=== PATIENT | female | born 1950 | race Caucasian/White ===

== ENCOUNTER 2016-12-26 11:33 | Inpatient (IN) | payer MEDICARE ==
[~2016-12-26] VITALS: Ht 149.9 cm; Wt 45.7 kg
[~2016-12-26 11:33] MED LIST: CARAFATE1 G/10 ML PO; CHOLESTYRAMIN4 G/PK1 PO; CLARITIN 10 MG10 MG PO; DYAZIDE 37.5/251 CAP PO; HYDROCODONE-APA1 TAB PO; LOTREL 10/20 CA1 CAP PO; PRILOSEC20 MG PO; TOPROL XL100 MG PO
[2016-12-26 13:10] LABS: BASOPHILS 1.5 % (0-2); EOSINOPHILS 4.9 % (0-7); HEMATOCRIT 39.9 % (36.0-48.0); HEMOGLOBIN 12.5 g/dL (12-16); IMMATURE GRANULOCYTES 0.4 % (0-5); LYMPHOCYTES 7.2 % (15-50); MCH 32.8 pg (26.0-34.0); MCHC 31.3 g/dL (31.0-37.0); MCV 104.7 fL (80.0-100.0); MEAN PLATELET VOLUME 10.7 fL (7.4-10.4); MONOCYTES 5.9 % (2-11); NEUTROPHILS 80.1 % (40-80); PLATELET COUNT 734 10x3/uL (130-400); RBC 3.81 10x6/uL (4.00-5.40); RDW 15.1 % (11.5-14.5); WBC 18.1 10x3/uL (4.8-10.8)
[2016-12-26 13:25] LABS: ALBUMIN 3.7 g/dL (3.4-5.0); ALKALINE PHOSPHATASE 106 U/L (46-116); ALT (SGPT) 60 U/L (10-68); BILIRUBIN - TOTAL 0.58 mg/dL (0.2-1.3); CALC OSMOLALITY 297 mosm/kg (275-300); CALCIUM 8.7 mg/dL (8.5-10.1); CARBON DIOXIDE 37.4 mmol/L (21.0-32.0); CHLORIDE - SERUM 105 mmol/L (98-107); CREATININE - SERUM 1.6 mg/dL (0.6-1.3); GLUCOSE 98 mg/dL (74-106); POTASSIUM - SERUM 3.4 mmol/L (3.5-5.1); PROTEIN - SERUM 6.7 g/dL (6.4-8.2); SODIUM 147 mmol/L (136-145); UREA NITROGEN 29 mg/dL (7-18); eGFR NON AFRICAN AMERICAN 34 mL/min (90-120)
[2016-12-26 15:32] LABS: AMYLASE - SERUM 55 U/L (25-115); LIPASE 235 U/L (73-393); PRO BNP 304 pg/mL (0-125)
[2016-12-26 15:33] LABS: TROPONIN-I < 0.017 ng/mL (0.000-0.060)
[2016-12-26 17:12] LABS: APPEARANCE CLEAR (CLEAR); BILIRUBIN NEGATIVE (NEGATIVE); COLOR YELLOW (YELLOW); GLUCOSE NEGATIVE (NEGATIVE); KETONE NEGATIVE (NEGATIVE); LEUKOCYTE ESTERASE TRACE (NEGATIVE); NITRITE NEGATIVE (NEGATIVE); PROTEIN NEGATIVE (NEGATIVE); SPECIFIC GRAVITY 1.005 (1.005-1.020); UROBILINOGEN NORMAL (NORMAL)
[2016-12-26 17:13] LABS: EPITHELIAL CELLS 0-5 /hpf (0-5); RED CELLS - URINE 0-5 /hpf (0-5); WHITE CELLS - URINE 0-5 /hpf (0-5)
[2016-12-26 17:14] LABS: BACTERIA FEW /hpf (NONE SEEN); MUCUS <1+ /lpf (NONE SEEN)
[2016-12-26 20:00] VITALS: BP 110/69
[2016-12-26 23:33] VITALS: BP 97/56
[2016-12-27 01:33] VITALS: BP 114/56; Ht 149.9 cm; Wt 45.7 kg
[2016-12-27 04:00] VITALS: BP 92/51
--- NOTE | 2016-12-27 07:00 | NUR ---
REPORT RECIEVED ASSUMED CARE. PATIENT IN BED WITH IV INTACT. NO COMPLAINTS. CALL LIGHT WITHIN REACH.
[2016-12-27 09:45] VITALS: BP 95/63
[2016-12-27 12:45] VITALS: BP 96/53
--- NOTE | 2016-12-27 18:50 | NUR ---
PATIENT DC HELD DUE TO LOW O2 SATS ON RA. RT CONSULTED. PATIENT DOES NOT WEAR O2 AT HOME. NOTIFIED FAMILY. VERBALIZED UNDERSTANDING. IV INTACT. CALL LIGHT WITHIN REACH.
[2016-12-27 20:00] VITALS: BP 133/70
--- NOTE | 2016-12-27 20:01 | NUR ---
Received patient in room with sister at bedside. Patient is resting quietly. Auto Brake Technician in giving treatment at this time. PIV in right AC infusing NS @125ml/hr. No signs of distress at this time. No voiced complaints.
--- NOTE | 2016-12-27 20:50 | NUR ---
Compliant with HS medications, unable to find her eye gtts at this time, will continue to look for same. Daughter has been at bedside on and off. Patient denies any pain or discomfort. Oxygen remains on @4L/min, sat = 93%. Bed alarm on for safety. IV infusing.
--- NOTE | 2016-12-27 22:00 | NUR ---
Given Xalatan eye gtts, found in refrigerator and returned to same. No voiced complaints at this time.
--- NOTE | 2016-12-27 22:30 | NUR ---
Entered room, daughter present extremely upset. Claims she left the hospital and that her mother has been left with her call light on for long period of time, claims the call light was on before she left and was still on when she returned. Attempted to inform daughter that both nurse and Tech had been in patient's room several times but she flat out stated "No" and wanted to speak to the Charge Nurse and to the Line Patrolman. I proceeded to open up patient's chart in the computer and showed daughter when patient's medications had been documented. Informed her the Tech had been in to take patient's VS and do HS care. Daughter was very angry, loud and accusatory, stating emphatically that patient would not "have soaked the bed" if her call light had been answered. Patient had infact dribbled small amount of urine, bed was not soaked, bedlinens were changed, incontinent care was done. Patient admitted she had been asked if she needed anything but had not told staff she needed to go to the bathroom. Daughter then became apologetic after ranting for the past 10 minutes. Daughter did speak to Charge Nurse and to Line Patrolman.
[2016-12-28] VITALS: BP 134/69
--- NOTE | 2016-12-28 02:45 | NUR ---
Respirations easy and regular, found patient sitting up in bed looking quite confused. Daughter asleep in chair at bedside. Reoriented patient that she was in the hospital, and to the time of day. Encouraged to try to sleep, tucked into bed. Checked pulse ox = 92% with oxygen on @4L/min. Resting quietly. IV infusing.
[2016-12-28 04:00] VITALS: BP 140/68
--- NOTE | 2016-12-28 05:27 | NUR ---
Assisted up to bathroom, voided moderate amount clear yellow urine, assisted back into bed, takes short steps, shuffling gait.
--- NOTE | 2016-12-28 08:05 | NUR ---
PT ASSESSMENT COMPLETE AWAKE AND ALERT ORIENTED X 3 PT HAS VERY FLAT AFFECT NOT VERBAL UNLESS ENGAGED SEVERAL TIMES. NOTED TO HAVE EXPIRATORY WHEEZING AND DIMINISHED SOUNDS NOTED.
[2016-12-28 08:33] VITALS: BP 145/75
--- NOTE | 2016-12-28 10:16 | NUR ---
Patient Name: KUSH MARTINEZ Admission Status: ER Accout number: [id number] Admission Date: 12-26-2016 : 1950 Admission Diagnosis: Attending: TAIWO Current LOS: 2 Anticipated DC Date: 12-31-2016 Planned Disposition: Home Primary Insurance: MEDICARE A & B Discharge Planning Comments: CM MET WITH PATIENT AND FAMILY (SISTER-RADHA BARRETO) REGARDING D/C NEEDS AND PLANS. PATIENTS SISTER STATED SHE WILL DRIVE HER HOME AT DISCHARGE. THERE ARE 2 STEPS W/O RAILS TO ENTER HOME AND 1 SMALL STEP W/O RAIL IN HOME. PATIENT IS INDEPENDENT PER SISTER AND HAS A CANE. PATIENTS PCP IS DR. TADEO AND PHARMACY IS [facility] [address]. PATIENT AND FAMILY HAS REFUSED HOME HEALTH AT THIS TIME BUT WOULD RECONSIDER IF DOCTOR THINKS IT IS NEEDED. CM WILL CONTINUE TO FOLLOW PATIENT WITH D/C NEEDS AND PLANS. PCP DR[facility] [address] [phone] RADHA BARRETO (SISTER) [phone] Power Cleaner Operator: Farida Ramos Is the patient Alert and Oriented? Yes 0 * How many steps to enter\exit or inside your home? 2 0 * PCP DR. TADEO 0 * [facility] [address] 0 * Preadmission Environment Home with Family 0 * ADLs Independent 0 * Equipment Cane 0 * List name and contact numbers for known caregivers / representatives who currently or will assist patient after discharge: RADHA BARRETO [phone] * Community resources currently utilized None 0 * Additional services required to return to the preadmission environment? Yes 0 * Can the patient safely return to the preadmission environment? Yes 0 * Has this patient been hospitalized within the prior 30 days at any hospital? No 0 Grand Total: 0
--- NOTE | 2016-12-28 11:11 | NUR ---
PT AOX4 RESP EVEN AND NONLABORED PT HAS FLAT AFFECT WITH RIGHT SIDED WEAKNESS IV TO RIGHT FOREARM PATENT AND INTACT PT DENIES NEEDS AT THIS TIME SRX2 BED AT LOWEST SETTINGS PT HERE FOR IV FLUIDS AND ANTIBIOTICS CALL LIGHT WITHIN REACH WILL CONTINUE TO MONITOR
[2016-12-28 13:11] VITALS: BP 119/68
--- NOTE | 2016-12-28 14:27 | NUR ---
NO ACUTE DISTRESS NOTED PT WITH LOOSE STOOL X 2 EPISODES DENIES PAIN OR GASTRIC DISCOMFORT. ALL ADLS PER STAFF ASSIST.
--- NOTE | 2016-12-28 15:58 | NUR ---
WITHOUT DISTRESS AT PRESENT.FAMILY AT BEDSIDE
[2016-12-28 16:14] VITALS: BP 109/54
--- NOTE | 2016-12-28 16:17 | NUR ---
NO ACUTE DISTRESS NOTED TOLERATES IV THERAPY WELL.
[2016-12-28 20:26] VITALS: BP 133/73
[2016-12-29] VITALS (7 sets, daily range): BP systolic 118–136; BP diastolic 64–72
--- NOTE | 2016-12-29 03:17 | NUR ---
REC'D PATIENT LYING IN BED. ALERT AND ORIENTED X4. SHE WAS WET AND NEEDED TO GO TO THE BATHROOM. CHANGED OUT HER BED PAD AND HELPED HER TO THE BEDSIDE COMMODE. DENIED PAIN AT THIS TIME. DENIED FURTHER NEEDS AT THIS TIME. INSTRUCTED TO CALL IF NEEDED ANYTHING. BED LOW, LOCKED CALL LIGHT IN REACH.
--- NOTE | 2016-12-29 03:18 | NUR ---
PATIENT COMPLAINED OF CHEST PAIN. HR WAS 124 ADMINISTERED 2100 LOPRESSOR PRESCRIBED AND NORCO SHE ASKS FOR. CHECKED ON HER 30 MIN LATER AND STATED THE PAIN WENT FROM 7/10 TO 4/10. WILL CONT TO MONITOR THROUGHOUT THE NIGHT. BED LOW, LOCKED, CALL LIGHT IN REACH.
--- NOTE | 2016-12-29 04:00 | NUR ---
PATIENT SLEEPING WITH NO DISTRESS NOTED. AGREE WITH NEUROLOGY EPILEPSY PHYSICIAN ASSESSMENT.
--- NOTE | 2016-12-29 05:50 | NUR ---
PATIENT IS RESTING IN BED. SISTER IS AT BESIDE. NO DISTRESS NOTED. DENIED PAIN AT THIS TIME. DENIED FUTHER NEEDS AT THIS TIME. INTRUCTED TO CALL IF NEEDED ANYTHING. BED LOW, LOCKED CALL LIGHT IN REACH.
[2016-12-29 05:55] LABS: BASOPHILS 0.8 % (0-2); EOSINOPHILS 3.5 % (0-7); HEMATOCRIT 34.2 % (36.0-48.0); HEMOGLOBIN 10.9 g/dL (12-16); IMMATURE GRANULOCYTES 0.8 % (0-5); LYMPHOCYTES 6.8 % (15-50); MCH 32.6 pg (26.0-34.0); MCHC 31.9 g/dL (31.0-37.0); MCV 102.4 fL (80.0-100.0); MEAN PLATELET VOLUME 10.9 fL (7.4-10.4); MONOCYTES 6.6 % (2-11); NEUTROPHILS 81.5 % (40-80); PLATELET COUNT 661 10x3/uL (130-400); RBC 3.34 10x6/uL (4.00-5.40); WBC 11.9 10x3/uL (4.8-10.8)
[2016-12-29 06:25] LABS: ANION GAP 12.1 mmol/L (8-16); CALCIUM 7.7 mg/dL (8.5-10.1); CARBON DIOXIDE 26.6 mmol/L (21.0-32.0); CREATININE - SERUM 1.3 mg/dL (0.6-1.3)
[2016-12-29 06:55] LABS: POTASSIUM - SERUM 2.7 mmol/L (3.5-5.1)
--- NOTE | 2016-12-29 08:17 | NUR ---
PT ASSESSMENT AWAKE AND ALERT ORINETED X 3 LUNGS WITH DIMINSHED BASES. BSA X 4 QUADS. HAS LEFT LEG SHORTER THAN THE RIGHT FAMILY AT BEDSIDE. WILL MONITOR
--- NOTE | 2016-12-29 08:18 | NUR ---
LYING IN BED,WITHOUT DISTRESS.CALL LIGHT IN REACH
--- NOTE | 2016-12-29 12:54 | NUR ---
NUTRITION MONITORING & EVAL CHART REVIEWED, PT VISIT. TOLERATING REG DIET. 75% INTAKE RECENT MEALS. CONTINUES TO BE ASSESSED AT LOW NUTRITIONAL RISK. RD FOLLOWING
--- NOTE | 2016-12-29 15:46 | NUR ---
PT SITTING UP IN CHAIR TOLERATING WELL BREATHING EXCERCISING ENCOURAGED.
--- NOTE | 2016-12-29 18:29 | NUR ---
BACK TO BED FAMILY AT SIDE ATE 80 % OF SUPPER MEAL FED PER FAMILY
--- NOTE | 2016-12-29 19:25 | NUR ---
ASSESSMENT COMPLETED, NO ACUTE DISTRESS NOTED, DENIES PAIN OR NEEDS AT THIS TIME, FALL PRECAUTIONS IN PLACE, CL IN REACH, WILL MONITOR
--- NOTE | 2016-12-29 21:23 | NUR ---
MEDS GIVEN PER MAR, TERRI WELL, DENIES NEEDS AT THIS TIME, CL IN REACH
--- NOTE | 2016-12-29 22:24 | NUR ---
PRN NORCO GIVEN PER MAR FOR C/O LOMAX, TERRI WELL, SISTER IN ROOM, CL IN REACH
--- NOTE | 2016-12-29 23:20 | NUR ---
SITTING UP IN BED, NO DISTRESS NOTED, SISTER AT BEDSIDE, SR'S UP, CL IN REACH
--- NOTE | 2016-12-30 01:49 | NUR ---
FLUIDS HUNG PER MAR, TERRI WELL, RESTING WITH EYES CLOSED, RESP WITH EASE, FALL PRECAUTIONS IN PLACE, SISTER IN ROOM, CL IN REACH
[2016-12-30 04:00] VITALS: BP 123/73
[2016-12-30 05:54] LABS: BASOPHILS 1.5 % (0-2); HEMATOCRIT 36.2 % (36.0-48.0); HEMOGLOBIN 11.4 g/dL (12-16); LYMPHOCYTES 6.4 % (15-50); MCH 32.5 pg (26.0-34.0); MCHC 31.5 g/dL (31.0-37.0); MCV 103.1 fL (80.0-100.0); MEAN PLATELET VOLUME 11.1 fL (7.4-10.4); MONOCYTES 7.5 % (2-11); NEUTROPHILS 79.6 % (40-80); PLATELET COUNT 746 10x3/uL (130-400); RBC 3.51 10x6/uL (4.00-5.40); RDW 15.3 % (11.5-14.5)
[2016-12-30 05:57] LABS: WBC 15.5 10x3/uL (4.8-10.8)
[2016-12-30 06:12] LABS: ALBUMIN 2.4 g/dL (3.4-5.0); ANION GAP 10.2 mmol/L (8-16); BILIRUBIN - TOTAL 0.28 mg/dL (0.2-1.3); CALCIUM 8.1 mg/dL (8.5-10.1); CARBON DIOXIDE 27.5 mmol/L (21.0-32.0); CREATININE - SERUM 1.1 mg/dL (0.6-1.3); POTASSIUM - SERUM 3.7 mmol/L (3.5-5.1); PROTEIN - SERUM 5.4 g/dL (6.4-8.2)
[2016-12-30 08:47] VITALS: BP 117/60
--- NOTE | 2016-12-30 10:20 | NUR ---
PATIENT VOMITED, CALLED 'S OFFICE, SPOKE WITH DR.LEFLER YESI'S NURSE. SHE STATED SHE WILL SPEAK WITH THE DOCTOR AND CALL ME BACK REGARDING MEDICATION FOR NAUSEA.
[2016-12-30 11:37] VITALS: BP 127/71
[2016-12-30 15:27] VITALS: BP 109/67
--- NOTE | 2016-12-30 19:50 | NUR ---
LYING IN BED WATCHING TV, ASSESSMENT COMPLETED, NO ACUTE DISTRESS NOTED, DENIES NEEDS AT THIS TIME, FAMILY AT BEDSIDE, ALARM ON, CL IN REACH, WILL MONITOR
[2016-12-30 20:00] VITALS: BP 114/69
--- NOTE | 2016-12-30 21:13 | NUR ---
MEDS GIVEN PER MAR. TERRI WELL, DENIES NEEDS, SAFETY MEASURES IN PLACE, CL IN REACH
--- NOTE | 2016-12-30 23:15 | NUR ---
VISITING WITH FAMILY, DENIES NEEDS AT THIS TIME, BOX ALARM ON, CL IN REACH
[2016-12-31] VITALS: BP 123/42
--- NOTE | 2016-12-31 05:32 | NUR ---
PROTONIX GIVEN PER NOV, ASSISTED TO RESTROOM, LINEN AND GOWN CHANGED FROM INCONT EPISODE, TERRI WELL, DENIES NEEDS, SR'S UP, BOX ALARM ON, SISTER AT BEDSIDE, CL IN REACH
--- NOTE | 2016-12-31 06:04 | NUR ---
PRN NORCO GIVEN FOR C/O STERNAL PAIN, NO DISTRESS NOTED, CL IN REACH
[2016-12-31 06:19] LABS: BASOPHILS 1.1 % (0-2); EOSINOPHILS 6.1 % (0-7); HEMATOCRIT 38.7 % (36.0-48.0); HEMOGLOBIN 12.2 g/dL (12-16); IMMATURE GRANULOCYTES 1.3 % (0-5); LYMPHOCYTES 5.7 % (15-50); MCH 32.4 pg (26.0-34.0); MCHC 31.5 g/dL (31.0-37.0); MCV 102.9 fL (80.0-100.0); MEAN PLATELET VOLUME 10.8 fL (7.4-10.4); MONOCYTES 6.6 % (2-11); NEUTROPHILS 79.2 % (40-80); PLATELET COUNT 779 10x3/uL (130-400); RBC 3.76 10x6/uL (4.00-5.40); RDW 15.2 % (11.5-14.5); WBC 17.5 10x3/uL (4.8-10.8)
[2016-12-31 06:49] LABS: ALBUMIN 2.7 g/dL (3.4-5.0); ANION GAP 11.1 mmol/L (8-16); BILIRUBIN - TOTAL 0.31 mg/dL (0.2-1.3); CALCIUM 8.4 mg/dL (8.5-10.1); CARBON DIOXIDE 29.5 mmol/L (21.0-32.0); CREATININE - SERUM 1.3 mg/dL (0.6-1.3); POTASSIUM - SERUM 3.6 mmol/L (3.5-5.1); PROTEIN - SERUM 5.7 g/dL (6.4-8.2)
--- NOTE | 2016-12-31 07:10 | NUR ---
REPORT RECEIVED FROM RECOVERY COLLECTOR NURSE. CALL LIGHT IN REACH.
[2016-12-31 08:21] VITALS: BP 124/64
--- NOTE | 2016-12-31 09:22 | NUR ---
ASSESSMENT COMPLETED. NORCO PO WITH AM MEDS ADMINISTERED. BED ALARM ON. CALL LIGHT IN REACH. WILL CONTINUE WITH PLAN OF CARE.
--- NOTE | 2016-12-31 09:22 | NUR ---
REPORT RECEIVED FROM PAYMENT COLLECTOR NURSE. CALL LIGHT IN REACH.
--- NOTE | 2016-12-31 09:52 | NUR ---
AWAKE AND ALERT LYING IN BED AT THIS TIME. RESPIRATIONS EVEN AND NON LABORED. CALL LIGHT IN REACH. SRX2 WITH BED IN LOWEST POSITION AND WHEELS LOCKED. CALL LIGHT IN REACH, WILL CONTINUE WITH PLAN OF CARE.
--- NOTE | 2016-12-31 11:40 | NUR ---
NO NEEDS VOICED AT THIS TIME. CALL LIGHT IN REACH.
--- NOTE | 2016-12-31 12:03 | NUR ---
NO NEEDS VOICED AT THIS TIME. CALL LIGHT IN REACH.
[2016-12-31 12:26] VITALS: BP 135/70
--- NOTE | 2016-12-31 13:43 | NUR ---
NEW BAG OF IV FLUIDS INITIATED. NORCO PO PER ABDOMINAL PAIN.
--- NOTE | 2016-12-31 15:20 | NUR ---
RESTING WITH EYES CLOSED. RESP EVEN AND UNLABORED. CALL LIGHT IN REACH.
[2016-12-31 16:22] VITALS: BP 134/74
--- NOTE | 2016-12-31 16:24 | NUR ---
C/O CHEST PAIN. BP 135/70, RESP 20, HR 89, AND O2 SAT 93% ON 6L PER NC. WILL CALL DR. TADEO.
--- NOTE | 2016-12-31 18:28 | NUR ---
GETTING CXR AT THIS TIME. SISTER IN ROOM. SPOKE WITH RT ABOUT O2 LEVEL. CALL LIGHT IN REACH. LONG MAT ALARM ON. WILL CONTINUE WITH PLAN OF CARE.
--- NOTE | 2016-12-31 19:00 | NUR ---
BEDSIDE REPORT RECEIVED AND CARE OF PT ASSUMED. PT LYING IN SEMI MOORE'S POSITION WATCHING TV. SISTER IS AT BEDSIDE. O2 IN USE VIA NC AT 6L. WILL MONITOR CLOSLEY FOR NEEDS.
--- NOTE | 2016-12-31 19:40 | NUR ---
DR BAIRES ROUNDED ON PT AND PLACED NEW ORDERS FOR LASIX AND SOLUMEDROL...BOTH GIVEN IVP PER ORDER AND PURPOSE / POSSIBLE SIDE EFFECTS DISCUSSED WITHPT. WILL CONTINUE TO MONITOR CLOSEY.
[2016-12-31 20:00] VITALS: BP 125/72
--- NOTE | 2016-12-31 21:40 | NUR ---
HS MEDICATIONS GIVEN. ASSISTED PT UP TO USE BSC. WILL CONTINUE TO MONITOR FOR NEEDS. CALL LIGHT WITHIN REACH.
[2017-01-01] VITALS: BP 133/69
--- NOTE | 2017-01-01 02:10 | NUR ---
GAVE NORCO 10 PO PER PT REQUEST FOR PAIN IN HIP. ASSISTED PT UP TO USE BSC. POSITIONED BACK IN BED FOR COMFORT. NO OTHER NEEDS VOICED. WILL CONTINUE TO MONITOR FOR NEEDS. SISTER IS AT BEDSIDE.
[2017-01-01 04:00] VITALS: BP 131/69
[2017-01-01 05:54] LABS: BASOPHILS 0.6 % (0-2); EOSINOPHILS 2.5 % (0-7); HEMATOCRIT 35.5 % (36.0-48.0); HEMOGLOBIN 11.6 g/dL (12-16); IMMATURE GRANULOCYTES 1.4 % (0-5); LYMPHOCYTES 5.1 % (15-50); MCHC 32.7 g/dL (31.0-37.0); MEAN PLATELET VOLUME 10.8 fL (7.4-10.4); MONOCYTES 3.3 % (2-11); NEUTROPHILS 87.1 % (40-80); PLATELET COUNT 774 10x3/uL (130-400); RBC 3.52 10x6/uL (4.00-5.40); RDW 14.8 % (11.5-14.5); WBC 15.4 10x3/uL (4.8-10.8)
[2017-01-01 05:57] LABS: MCV 100.9 fL (80.0-100.0)
[2017-01-01 06:26] LABS: ANION GAP 5.5 mmol/L (8-16); CALCIUM 7.9 mg/dL (8.5-10.1); CARBON DIOXIDE 35.5 mmol/L (21.0-32.0); CREATININE - SERUM 1.3 mg/dL (0.6-1.3); MAGNESIUM - SERUM 1.1 mg/dL (1.8-2.4); PHOSPHOROUS 4.5 mg/dL (2.5-4.9)
--- NOTE | 2017-01-01 07:06 | NUR ---
POTASSIUM LEVEL 3.0 AND MAGNESIUM 1.1 THIS AM. COVERING PER ELECTROLYTE PTOTOCOL. GAVE 40 MEQ PO POTASSIUM AND 400 MG PO MAGNESIUM. WILL PASS ALONG IN REPORT.
[2017-01-01 08:00] VITALS: BP 126/78
--- NOTE | 2017-01-01 08:43 | NUR ---
SITTING UP IN BED EATING BREAKFAST, DENIES NEEDS, CALL LIGHT IN REACH, BED LOWEST POSITION, WILL CONTINUE TO MONITOR
[2017-01-01 12:29] VITALS: BP 114/59
--- NOTE | 2017-01-01 14:14 | NUR ---
AMBUKATED IN HALLS,WITHOUT DISTRESS.BACK TO ROOM WITH PT.CALL LIGHT IN REACH
[2017-01-01 15:47] VITALS: BP 101/54
[2017-01-01 19:00] VITALS: BP 135/65
--- NOTE | 2017-01-01 21:00 | NUR ---
ASSESSMENT COMPLETED PER FLOW SHEET. NO DISTRESS NOTED. CALL LIGHT IN REACH.
[2017-01-02] VITALS: BP 134/76
[2017-01-02 04:00] VITALS: BP 125/60
[2017-01-02 05:33] LABS: BASOPHILS 0.5 % (0-2); EOSINOPHILS 1.2 % (0-7); HEMATOCRIT 36.5 % (36.0-48.0); HEMOGLOBIN 11.6 g/dL (12-16); IMMATURE GRANULOCYTES 1.6 % (0-5); LYMPHOCYTES 5.9 % (15-50); MCH 32.2 pg (26.0-34.0); MCHC 31.8 g/dL (31.0-37.0); MCV 101.4 fL (80.0-100.0); MEAN PLATELET VOLUME 10.3 fL (7.4-10.4); MONOCYTES 6.8 % (2-11); PLATELET COUNT 817 10x3/uL (130-400); RDW 15.1 % (11.5-14.5); WBC 18.2 10x3/uL (4.8-10.8)
[2017-01-02 05:59] LABS: ANION GAP 7.1 mmol/L (8-16); CREATININE - SERUM 1.4 mg/dL (0.6-1.3); MAGNESIUM - SERUM 1.3 mg/dL (1.8-2.4); PHOSPHOROUS 3.4 mg/dL (2.5-4.9)
[2017-01-02 06:00] LABS: POTASSIUM - SERUM 3.1 mmol/L (3.5-5.1)
--- NOTE | 2017-01-02 07:30 | NUR ---
SITTING UP IN BED WITH BREATHING TREATMENT ON, DENIES NEEDS, NO DISTRESS NOTED, BED LOWEST POSITION, CALL LIGHT IN REACH, ASSESSMENT COMPLETE, WILL CONTINUE TO MONITOR
[2017-01-02 08:16] LABS: IMMUNOGLOBULIN E <1 IU/mL (0-100)
[2017-01-02 09:00] VITALS: BP 157/85
[2017-01-02 16:17] VITALS: BP 96/50
--- NOTE | 2017-01-02 16:19 | NUR ---
PT WITHOUT DISTRESS.HAS AMBULATED IN HALLS WITH PT.CALL LIGHT IN REACH
--- NOTE | 2017-01-02 17:58 | NUR ---
SLEEEPING, NO DISTRESS NOTED
[2017-01-02 20:00] VITALS: BP 124/54
--- NOTE | 2017-01-02 22:05 | NUR ---
ASSISTED THE PATIENT TO THE BEDSIDE COMMODE AND BACK TO BED. PATIENT DENIES OTHER NEEDS AT THIS TIME. BED IN LOWEST POSITION AND CALL LIGHT WITHIN REACH. ENCOURAGED THE PATIENT TO CALL IF SHE HAS FURTHER NEEDS.
[2017-01-03] VITALS: BP 133/71
[2017-01-03 04:00] VITALS: BP 136/88
[2017-01-03 06:24] LABS: HEMATOCRIT 37.5 % (36.0-48.0); HEMOGLOBIN 11.8 g/dL (12-16); MCH 32.1 pg (26.0-34.0); MCHC 31.5 g/dL (31.0-37.0); MCV 101.9 fL (80.0-100.0); MEAN PLATELET VOLUME 10.5 fL (7.4-10.4); PLATELET COUNT 932 10x3/uL (130-400); RBC 3.68 10x6/uL (4.00-5.40); RDW 14.7 % (11.5-14.5); WBC 21.7 10x3/uL (4.8-10.8)
[2017-01-03 06:49] LABS: LYMPHOCYTES 6 % (15-50); MONOCYTES 2 % (2-11); NEUTROPHILS 89 % (40-80); PLATELET ESTIMATE INCREASED
[2017-01-03 07:05] LABS: ALBUMIN 2.5 g/dL (3.4-5.0); ANION GAP 12.4 mmol/L (8-16); BILIRUBIN - TOTAL 0.2 mg/dL (0.2-1.3); CALCIUM 8.4 mg/dL (8.5-10.1); CREATININE - SERUM 1.4 mg/dL (0.6-1.3); POTASSIUM - SERUM 3.4 mmol/L (3.5-5.1); PROTEIN - SERUM 5.6 g/dL (6.4-8.2)
--- NOTE | 2017-01-03 07:30 | NUR ---
RECIEVED PT DURING WALKING ROUNDS. PT RESTING IN BED WITH NO COMPLAINTS OF PAIN OR DISCOMFORT AT THIS TIME. ASSESSMENT DONE PER FLOWSHEET. BED IN LOW POSITION AND CALL LIGHT WITHIN REACH. WILL CONTINUE TO MONITOR.
[2017-01-03 09:17] VITALS: BP 146/78
[2017-01-03 11:53] VITALS: BP 144/75
[2017-01-03 15:33] VITALS: BP 98/54
--- NOTE | 2017-01-03 16:15 | NUR ---
AWAKE AND ALERT. RESPIRATIONS EVEN AND NON LABORED. OXYGEN ON 2L VIA NC. SRX2 WITH BED IN LOWEST POSITION AND WHEELS LOCKED. CALL LIGHT IN REACH, WILL CONTINUE WITH PLAN OF CARE.
[2017-01-03 20:00] VITALS: BP 133/73
--- NOTE | 2017-01-03 20:00 | NUR ---
ASSESSMENT PERFLOWSHEET. ALERT/ORIENTED X3 O2 ON 2L/M PER NC. NO DISTRESS HOB UP 45 DEGREES. BILATERAL CRACKLES NOTED. IN PATENT LT HAND SALINE LOCK.
--- NOTE | 2017-01-03 21:00 | NUR ---
MEDS GIVEN PER MAR FAMILY MEMBERS IN ROOM.
[2017-01-04] VITALS: BP 146/80
--- NOTE | 2017-01-04 | NUR ---
EYES CLOSED RESPIRATIONS WITH EASE AND UNLABORED.
[2017-01-04 04:00] VITALS: BP 140/75
[2017-01-04 05:54] LABS: BASOPHILS 0.2 % (0-2); EOSINOPHILS 0.5 % (0-7); HEMATOCRIT 38.5 % (36.0-48.0); HEMOGLOBIN 12.1 g/dL (12-16); IMMATURE GRANULOCYTES 3.2 % (0-5); LYMPHOCYTES 5.4 % (15-50); MCH 32.3 pg (26.0-34.0); MCHC 31.4 g/dL (31.0-37.0); MCV 102.7 fL (80.0-100.0); MEAN PLATELET VOLUME 10.5 fL (7.4-10.4); MONOCYTES 6.1 % (2-11); NEUTROPHILS 84.6 % (40-80); PLATELET COUNT 926 10x3/uL (130-400); RBC 3.75 10x6/uL (4.00-5.40); RDW 14.9 % (11.5-14.5); WBC 20.3 10x3/uL (4.8-10.8)
[2017-01-04 06:00] LABS: ANION GAP 7.5 mmol/L (8-16); CALCIUM 8.3 mg/dL (8.5-10.1); CARBON DIOXIDE 34.9 mmol/L (21.0-32.0); CREATININE - SERUM 1.3 mg/dL (0.6-1.3); POTASSIUM - SERUM 3.4 mmol/L (3.5-5.1)
--- NOTE | 2017-01-04 07:50 | NUR ---
AWAKE AND ALERT AT THIS TIME. SISTER AT BEDSIDE. PROVIDED PT WITH FRESH ICE WATER. CALL LIGHT IN REACH, WILL CONTINUE WITH PLAN OF CARE.
[2017-01-04 07:58] VITALS: BP 138/73
--- NOTE | 2017-01-04 08:23 | NUR ---
SCHEDULED MEDICATIONS ADMINISTERED AT THIS TIME WITHOUT DIFFICULTY. ASSESSMENT PERFORMED PER FLOWSHEET. SISTER AT BEDSIDE. CALL LIGHT IN REACH, SRX2 WITH BED IN LOWEST POSITION AND WHEELS LOCKED. WILL CONTINUE WITH PLAN OF CARE.
--- NOTE | 2017-01-04 09:10 | NUR ---
ASSISTED PT UP TO THE BATHROOM AT THIS TIME. VOIDED WITHOUT DIFFICULTY AND HAD A BOWEL MOVEMENT WITHOUT DIFICULTY. DENIES NEEDS AT THIS TIME. WILL CONTINUE WITH PLAN OF CARE.
--- NOTE | 2017-01-04 10:25 | EC ---
PATIENT:KUSH MARTINEZ DATE OF SERVICE: 12/26/16 SEX: F MEDICAL RECORD: [id number] DATE OF : [birth year] LOCATION:D.[id number] AGE OF PATIENT: 66 ADMISSION DATE: 12/26/16 REFERRING PHYSICIAN: INTERPRETING PHYSICIAN: ZAYNAB RANDOLPH MD ECHOCARDIOGRAM REPORT ECHO CHARGES 4 ECHO COMPLETE CLINICAL DIAGNOSIS: CHF HX HTN ECHOCARDIOGRAPHIC MEASUREMENTS (adult normal given) AC root (d.<3.7cm) 3.2 LV Septum d (<1.2 cm> 1.5 Valve Excursion 1.6 LV Septum (systole) 1.8 Left Atria (s.<4.0cm> 3.5 LVPW d(<1.2cm) 1.4 RV (d.<2.3cm) 2.8 LVPW (sytole) 1.5 LV diastole(<5.6CM) 3.8 MV E-F(>70mm/sec) LV systole 2.4 LVOT Diameter 1.6 MV exc.(>10mm) 1.7 Est.ejection fraction (50-75%) Pericardial Effusion N DOPPLER: LVIT A 77.0 E 112 LA RVSP 26 LVOT 139 AOP1/2T Asc. Ao 197 RVOT 104 RA PA 15 AV Gradient Peak 15.45 AV Mean 6.31 AV Area 1.7 MV Gradient Peak 7.00 MV Mean 3.03 MV Area COMMENTS: Inoculator: Eneida GONZÁLES Shoe Planner:Eneida Yeboah TAPE# PACS DATE OF SERVICE: 01/01/2017 Echocardiogram FINDINGS: 1. Left ventricular chamber size is within normal limits. Left ventricular systolic function is normal. Overall ejection fraction estimated at 65%. 2. Left atrium, right atrium, and right ventricular chamber sizes are within normal limits. 3. Valvular structures have normal structure and motion. ECHOCARDIOGRAM REPORT [id number] KUSH MARTINEZ 4. Doppler interrogation reveals mild aortic insufficiency, mild mitral regurgitation, mild tricuspid regurgitation. No other valvular insufficiency or stenosis. Pulmonary systolic pressure is normal estimated at 26 mmHg. 5. No evidence of pericardial effusion or left ventricular thrombus. TRANSINT:[id number] Voice Confirmation ID: [id number] DOCUMENT ID: [id number] ZAYNAB RANDOLPH MD at 1025 CC: [id number] DICTATION DATE: 01/01/17 1531 TRAFFIC WORKFORCE REPRESENTATIVE: 01/01/17 1652 ADM IN [facility] [address] [id number]
[2017-01-04 11:54] VITALS: BP 138/73
--- NOTE | 2017-01-04 15:31 | NUR ---
SCHEDULED MEDICATIONS ADMINISTERED BY PEYTON MA AT THIS TIME. PT ALERT AND ORIENTED WITH RESPIRATIONS EVEN AND NON LABORED. CALL LIGHT IN REACH, WILL CONTINUE WITH PLAN OF CARE.
[2017-01-04 15:50] VITALS: BP 112/59
--- NOTE | 2017-01-04 19:41 | NUR ---
ASSISTED PATIENT TO THE RESTROOM AND BACK TO BED. PATIENT DENIES OTHER NEEDS AT THIS TIME. BED IN LOWEST POSITION AND CALL LIGHT WITHIN REACH.
[2017-01-04 20:00] VITALS: BP 120/64
[2017-01-05 04:00] VITALS: BP 137/81
[2017-01-05 08:25] VITALS: BP 150/72
[2017-01-05 08:32] LABS: BASOPHILS 0.5 % (0-2); EOSINOPHILS 0.8 % (0-7); HEMATOCRIT 44.6 % (36.0-48.0); HEMOGLOBIN 13.9 g/dL (12-16); IMMATURE GRANULOCYTES 5.7 % (0-5); LYMPHOCYTES 5.7 % (15-50); MCH 32.3 pg (26.0-34.0); MCHC 31.2 g/dL (31.0-37.0); MCV 103.5 fL (80.0-100.0); MEAN PLATELET VOLUME 12.1 fL (7.4-10.4); MONOCYTES 6.1 % (2-11); NEUTROPHILS 81.2 % (40-80); PLATELET COUNT 100 10x3/uL (130-400); RBC 4.31 10x6/uL (4.00-5.40); RDW 14.6 % (11.5-14.5); WBC 21.6 10x3/uL (4.8-10.8)
[2017-01-05 08:41] LABS: CARBON DIOXIDE 30.4 mmol/L (21.0-32.0); CREATININE - SERUM 1.2 mg/dL (0.6-1.3)
[2017-01-05 08:44] LABS: POTASSIUM - SERUM 5.4 mmol/L (3.5-5.1)
--- NOTE | 2017-01-05 09:31 | NUR ---
SCHEDULED MEDICATIONS ADMINISTERED AT THIS TIME. TAKEN WITHOUT DIFFICULTY. IN BED AT THIS TIME WITH SISTER AT BEDSIDE. DENIES NEEDS. CALL LIGHT IN REACH. WILL CONTINUE WITH PLAN OF CARE.
[2017-01-05 12:45] VITALS: BP 139/73
--- NOTE | 2017-01-05 14:08 | NUR ---
SCHEDULED MEDICATIONS ADMINISTERED AT THIS TIME. OXYGEN SATURATION 94% ON ROOM AIR. SISTER REMAINS AT BEDSIDE AND CALL LIGHT IN REACH.
--- NOTE | 2017-01-05 14:17 | NUR ---
NUTRITION MONITORING & EVAL CHART REVIEWED. PT TOLERATING REG MECH SOFT DIET. 75% INTAKE RECENT MEALS. RD FOLLOWING
--- NOTE | 2017-01-05 16:18 | NUR ---
FAMILY AT BEDSIDE. PT DENIES NEEDS AT THIS TIME. WILL CONTINUE WITH PLAN OF CARE.
[2017-01-05 16:41] VITALS: BP 123/73
[2017-01-05 19:00] VITALS: BP 122/66
[2017-01-06 04:00] VITALS: BP 131/75
[2017-01-06 06:39] LABS: BASOPHILS 0.4 % (0-2); EOSINOPHILS 0.9 % (0-7); HEMOGLOBIN 12.8 g/dL (12-16); IMMATURE GRANULOCYTES 4.1 % (0-5); LYMPHOCYTES 3.1 % (15-50); MCHC 31.2 g/dL (31.0-37.0); MCV 102.5 fL (80.0-100.0); MEAN PLATELET VOLUME 10.4 fL (7.4-10.4); MONOCYTES 6.8 % (2-11); NEUTROPHILS 84.7 % (40-80); PLATELET COUNT 885 10x3/uL (130-400); RDW 14.7 % (11.5-14.5)
[2017-01-06 07:01] LABS: ALBUMIN 2.9 g/dL (3.4-5.0); ANION GAP 9.5 mmol/L (8-16); BILIRUBIN - TOTAL 0.26 mg/dL (0.2-1.3); CALCIUM 8.6 mg/dL (8.5-10.1); CARBON DIOXIDE 32.5 mmol/L (21.0-32.0); CREATININE - SERUM 1.3 mg/dL (0.6-1.3); PROTEIN - SERUM 5.9 g/dL (6.4-8.2)
--- NOTE | 2017-01-06 07:30 | NUR ---
IN BED AT THIS TIME. ALERT AND ORIENTED WITH RESPIRATIONS EVEN AND NON LABORED. MAINTAINING OXYGENS SATURATIONS ON ROOM AIR. SISTER AT BEDSIDE. PT DENIES NEEDS AT THIS TIME. CALL LIGHT IN REACH, WILL CONTINUE WITH PLAN OF CARE.
[2017-01-06] MEDS ORDERED: IPRAT-ALBUT 0.5-3 ML UPD (07:50)
[2017-01-06] MEDS ORDERED: BENZONATATE200 MG PO (07:50)
[2017-01-06] MEDS ORDERED: ALDACTONE25 MG PO (07:50)
[2017-01-06] MEDS ORDERED: PREDNISONE20 MG PO (07:50)
[2017-01-06] MEDS ORDERED: HYDROCODONE-APA1 TAB PO (07:50)
[2017-01-06 08:04] VITALS: BP 148/86
--- NOTE | 2017-01-06 09:15 | NUR ---
CM REASSESSMENT NOTE: PATIENT IS DISCHARGING HOME TODAY AND SISTER (RADHA) IS DRIVING HER HOME. PATIENT WILL INTERNATIONAL COORDINATOR NEBULIZER AT [facility] AT DISCHARGE. PATIENTS SISTER STATED SHE KNOWS HOW TO USE THE NEBULIZER SEVERAL FAMILY MEMBERS HAVE ONE (REF. HOME HEALTH). D/C IMM SERVED
--- NOTE | 2017-01-06 10:30 | NUR ---
DISCHARGE PAPERWORK REVIEWED WITH PT AND HER SISTER. IV TO LEFT HAND D/C WITH CATH TIP INTACT. DENIES QUESTIONS OR CONCERNS. DISCHARGED HOME AT THIS TIME.
== END 2017-01-06 10:30 | disposition home or self-care (01) | DRG 190 ==
LOC: D.ER 11:33 → D.MS 18:00
PROVIDERS: Family Medicine; Internal Medicine Pulmonary Disease; ADMIT Family Medicine
DX: J44.0 Chronic obstructive pulmonary disease with (acute) lower respiratory infection (principal); J18.9 Pneumonia, unspecified organism; J96.01 Acute respiratory failure with hypoxia; N17.9 Acute kidney failure, unspecified; I13.0 Hypertensive heart and chronic kidney disease with heart failure and stage 1 through stage 4 chronic kidney disease, or unspecified chronic kidney disease; E87.0 Hyperosmolality and hypernatremia; J44.1 Chronic obstructive pulmonary disease with (acute) exacerbation; N18.9 Chronic kidney disease, unspecified; K52.9 Noninfective gastroenteritis and colitis, unspecified; H40.9 Unspecified glaucoma; K21.9 Gastro-esophageal reflux disease without esophagitis; M19.90 Unspecified osteoarthritis, unspecified site; Z77.22 Contact with and (suspected) exposure to environmental tobacco smoke (acute) (chronic); I08.3 Combined rheumatic disorders of mitral, aortic and tricuspid valves; E87.6 Hypokalemia

== ENCOUNTER → 2017-06-10 17:21 | Outpatient (CLI) | payer MEDICARE ==
[2016-12-27 01:33] VITALS: BMI 20.3
[~2017-06-10 17:21] MED LIST changes: +ALDACTONE25 MG PO; +BENZONATATE200 MG PO; +IPRAT-ALBUT 0.5-3 ML UPD; +PREDNISONE20 MG PO
== END | disposition home or self-care (01) ==
LOC: D.CT 17:21
DX: R53.1 Weakness (principal); G93.40 Encephalopathy, unspecified

== ENCOUNTER 2017-08-30 02:22 | Inpatient (IN) | payer MEDICARE ==
[~2017-08-30] VITALS: Ht 149.9 cm; Wt 47.5 kg
[2017-08-30 02:54] LABS: HEMATOCRIT 44.8 % (36.0-48.0); HEMOGLOBIN 14.1 g/dL (12-16); MCH 32.8 pg (26.0-34.0); MCHC 31.5 g/dL (31.0-37.0); MCV 104.2 fL (80.0-100.0); MEAN PLATELET VOLUME 10.5 fL (7.4-10.4); PLATELET COUNT 845 10x3/uL (130-400); RDW 15.7 % (11.5-14.5); WBC 20.3 10x3/uL (4.8-10.8)
[2017-08-30 03:08] LABS: ALBUMIN 3.8 g/dL (3.4-5.0); ALKALINE PHOSPHATASE 91 U/L (46-116); ALT (SGPT) 19 U/L (10-68); BILIRUBIN - TOTAL 0.42 mg/dL (0.2-1.3); CALC OSMOLALITY 300 mosm/kg (275-300); CHLORIDE - SERUM 112 mmol/L (98-107); CREATININE - SERUM 1.8 mg/dL (0.6-1.3); GLUCOSE 104 mg/dL (74-106); PROTEIN - SERUM 6.4 g/dL (6.4-8.2); SODIUM 144 mmol/L (136-145); UREA NITROGEN 51 mg/dL (7-18); eGFR NON AFRICAN AMERICAN 30 mL/min (90-120)
[2017-08-30 03:16] LABS: CKMB 0.5 U/L (0.0-3.6); CREATINE KINASE 14 UL (21-215); LIPASE 399 U/L (73-393); PRO BNP 148 pg/mL (0-125)
[2017-08-30 03:17] LABS: TROPONIN-I < 0.017 ng/mL (0.000-0.060)
[2017-08-30 03:36] LABS: EOSINOPHILS 5 % (0-7); LYMPHOCYTES 15 % (15-50); MONOCYTES 8 % (2-11); NEUTROPHILS 72 % (40-80); PLATELET ESTIMATE INCREASED
[2017-08-30 04:05] LABS: APPEARANCE CLEAR (CLEAR); BACTERIA FEW /hpf (NONE SEEN); BILIRUBIN NEGATIVE (NEGATIVE); COLOR YELLOW (YELLOW); EPITHELIAL CELLS RARE /hpf (0-5); GLUCOSE NEGATIVE (NEGATIVE); KETONE NEGATIVE (NEGATIVE); NITRITE NEGATIVE (NEGATIVE); PROTEIN NEGATIVE (NEGATIVE); SPECIFIC GRAVITY 1.015 (1.005-1.020); UROBILINOGEN NORMAL (NORMAL); WHITE CELLS - URINE 0-5 /hpf (0-5)
[2017-08-30 05:31] VITALS: BP 144/72
[2017-08-30 05:41] VITALS: BP 144/72
[2017-08-30 08:20] VITALS: BP 136/66
[2017-08-30 11:15] VITALS: BP 140/70
[2017-08-30 15:45] VITALS: BP 144/66
[2017-08-30 19:00] VITALS: BP 112/59
[2017-08-31 04:00] VITALS: BP 121/61
[2017-08-31 05:57] LABS: BASOPHILS 1.8 % (0-2); EOSINOPHILS 5.5 % (0-7); HEMATOCRIT 44.4 % (36.0-48.0); HEMOGLOBIN 13.8 g/dL (12-16); IMMATURE GRANULOCYTES 0.7 % (0-5); MCH 32.9 pg (26.0-34.0); MCHC 31.1 g/dL (31.0-37.0); MEAN PLATELET VOLUME 10.8 fL (7.4-10.4); MONOCYTES 5.4 % (2-11); NEUTROPHILS 76.6 % (40-80); PLATELET COUNT 722 10x3/uL (130-400); RBC 4.19 10x6/uL (4.00-5.40); RDW 16.1 % (11.5-14.5); WBC 16.1 10x3/uL (4.8-10.8)
[2017-08-31 06:27] LABS: ANION GAP 13.3 mmol/L (8-16); CARBON DIOXIDE 22.5 mmol/L (21.0-32.0); POTASSIUM - SERUM 4.8 mmol/L (3.5-5.1)
[2017-08-31 06:41] LABS: ALBUMIN 3.2 g/dL (3.4-5.0); BILIRUBIN - TOTAL 0.4 mg/dL (0.2-1.3); CALCIUM 8.4 mg/dL (8.5-10.1); CREATININE - SERUM 1.6 mg/dL (0.6-1.3); PROTEIN - SERUM 5.8 g/dL (6.4-8.2)
[2017-08-31 07:55] VITALS: BP 129/82
[2017-08-31 11:52] VITALS: BP 117/69
[2017-08-31 14:06] VITALS: Ht 149.9 cm; Wt 47.5 kg
[2017-08-31 16:11] VITALS: BP 122/72
[2017-08-31 21:08] VITALS: BP 141/71
[2017-09-01 01:58] VITALS: BP 123/65
[2017-09-01 04:21] VITALS: BP 115/62
[2017-09-01 05:35] LABS: BASOPHILS 1.5 % (0-2); EOSINOPHILS 4.5 % (0-7); HEMATOCRIT 39.3 % (36.0-48.0); HEMOGLOBIN 12.3 g/dL (12-16); IMMATURE GRANULOCYTES 0.6 % (0-5); LYMPHOCYTES 8.4 % (15-50); MCHC 31.3 g/dL (31.0-37.0); MCV 105.4 fL (80.0-100.0); MEAN PLATELET VOLUME 10.6 fL (7.4-10.4); MONOCYTES 6.6 % (2-11); NEUTROPHILS 78.4 % (40-80); PLATELET COUNT 662 10x3/uL (130-400); RBC 3.73 10x6/uL (4.00-5.40); RDW 15.9 % (11.5-14.5); WBC 14.5 10x3/uL (4.8-10.8)
[2017-09-01 06:01] LABS: ANION GAP 14.1 mmol/L (8-16); CALCIUM 8.3 mg/dL (8.5-10.1); CARBON DIOXIDE 20.1 mmol/L (21.0-32.0); CREATININE - SERUM 1.4 mg/dL (0.6-1.3); POTASSIUM - SERUM 4.2 mmol/L (3.5-5.1)
[2017-09-01 07:57] VITALS: BP 144/76
[2017-09-01 11:45] VITALS: BP 118/65
[2017-09-01 15:49] VITALS: BP 101/71
[2017-09-01 21:32] VITALS: BP 132/67
[2017-09-02 03:29] VITALS: BP 136/74
[2017-09-02 04:56] LABS: BASOPHILS 0.9 % (0-2); EOSINOPHILS 4.4 % (0-7); HEMATOCRIT 39.5 % (36.0-48.0); HEMOGLOBIN 12.4 g/dL (12-16); IMMATURE GRANULOCYTES 0.9 % (0-5); LYMPHOCYTES 8.2 % (15-50); MCH 32.5 pg (26.0-34.0); MCHC 31.4 g/dL (31.0-37.0); MCV 103.7 fL (80.0-100.0); MEAN PLATELET VOLUME 10.6 fL (7.4-10.4); MONOCYTES 9.5 % (2-11); NEUTROPHILS 76.1 % (40-80); PLATELET COUNT 650 10x3/uL (130-400); RBC 3.81 10x6/uL (4.00-5.40); RDW 15.8 % (11.5-14.5); WBC 12.8 10x3/uL (4.8-10.8)
[2017-09-02 05:13] LABS: ANION GAP 13.9 mmol/L (8-16); CALCIUM 8.1 mg/dL (8.5-10.1); CARBON DIOXIDE 21.8 mmol/L (21.0-32.0); CREATININE - SERUM 1.2 mg/dL (0.6-1.3); POTASSIUM - SERUM 3.7 mmol/L (3.5-5.1)
[2017-09-02 07:48] VITALS: BP 123/60
[2017-09-02 11:32] VITALS: BP 124/67
== END 2017-09-02 13:50 | disposition home or self-care (01) | DRG 840 ==
LOC: D.ER 02:22 → D.M2 04:24
PROVIDERS: Family Medicine; Nurse Practitioner Family
PROC: 07DR3ZX Extraction of Iliac Bone Marrow, Percutaneous Approach, Diagnostic (ICD-10-PCS; principal; 2017-08-31)
DX: C94.6 Myelodysplastic disease, not elsewhere classified (principal); K85.90 Acute pancreatitis without necrosis or infection, unspecified; N28.9 Disorder of kidney and ureter, unspecified; E87.5 Hyperkalemia; J44.9 Chronic obstructive pulmonary disease, unspecified; I10 Essential (primary) hypertension; H40.9 Unspecified glaucoma

== ENCOUNTER 2018-08-28 10:16 | Emergency (ER) | payer OTHER, MEDICARE ==
[~2018-08-28] VITALS: Ht 149.9 cm; Wt 48.2 kg
[2018-08-28 10:40] VITALS: Ht 149.9 cm; Wt 48.2 kg
[2018-08-28] MEDS ORDERED: TRIAMTERENE/HCTZ PO (10:45)
[2018-08-28] MEDS ORDERED: HYDROXYUREA500 MG GT (10:46)
[2018-08-28] MEDS ORDERED: MULTI-DAY VITAM1 TAB PO (10:46)
[2018-08-28] MEDS ORDERED: XALATAN 0.0052.5 ML EACH EYE (10:46)
[2018-08-28] MEDS ORDERED: PEPCID AC20 MG PO (10:46)
[2018-08-28 11:38] LABS: BASOPHILS 0.6 % (0-2); EOSINOPHILS 3.4 % (0-7); HEMOGLOBIN 10.7 g/dL (12-16); IMMATURE GRANULOCYTES 0.2 % (0-5); LYMPHOCYTES 21.2 % (15-50); MCH 42.6 pg (26.0-34.0); MCHC 33.4 g/dL (31.0-37.0); MCV 127.5 fL (80.0-100.0); MEAN PLATELET VOLUME 9.9 fL (7.4-10.4); MONOCYTES 11.3 % (2-11); NEUTROPHILS 63.3 % (40-80); RBC 2.51 10x6/uL (4.00-5.40); WBC 5.2 10x3/uL (4.8-10.8)
[2018-08-28 11:41] LABS: PLATELET COUNT 227 10x3/uL (130-400)
[2018-08-28 11:46] LABS: APTT 25.9 SECONDS (22.8-39.4); INR 1.13 (0.85-1.17)
[2018-08-28 11:49] LABS: D-DIMER-QUANTITATIVE < 0.27 ug/mLFEU (0.20-0.54)
[2018-08-28 11:51] LABS: ALBUMIN 3.5 g/dL (3.4-5.0); ALKALINE PHOSPHATASE 74 U/L (46-116); ALT (SGPT) 24 U/L (10-68); BILIRUBIN - TOTAL 0.64 mg/dL (0.2-1.3); CALC OSMOLALITY 287 mosm/kg (275-300); CALCIUM 8.7 mg/dL (8.5-10.1); CARBON DIOXIDE 27.4 mmol/L (21.0-32.0); CHLORIDE - SERUM 103 mmol/L (98-107); CREATININE - SERUM 1.3 mg/dL (0.6-1.3); GLUCOSE 75 mg/dL (74-106); POTASSIUM - SERUM 3.8 mmol/L (3.5-5.1); PROTEIN - SERUM 7.6 g/dL (6.4-8.2); SODIUM 141 mmol/L (136-145); UREA NITROGEN 35 mg/dL (7-18); eGFR NON AFRICAN AMERICAN 43 mL/min (90-120)
[2018-08-28 11:55] LABS: LIPASE 338 U/L (73-393)
[2018-08-28 12:02] LABS: CKMB 0.2 U/L (0.0-3.6)
[2018-08-28 12:03] LABS: TROPONIN-I < 0.017 ng/mL (0.000-0.060)
[2018-08-28 13:34] VITALS: BP 128/73
== END 2018-08-28 13:35 | disposition home or self-care (01) ==
LOC: D.ER 10:16
PROVIDERS: Family Medicine
DX: J06.9 Acute upper respiratory infection, unspecified (principal); R09.89 Other specified symptoms and signs involving the circulatory and respiratory systems; I10 Essential (primary) hypertension

== ENCOUNTER 2018-09-22 13:30 | Outpatient (CLI) | payer MEDICARE ==
[~2018-09-22] VITALS: Ht 149.9 cm; Wt 45.5 kg
[~2018-09-22 13:30] MED LIST changes: +HYDROXYUREA500 MG GT; +MULTI-DAY VITAM1 TAB PO; +PEPCID AC20 MG PO; +TRIAMTERENE/HCTZ PO; +XALATAN 0.0052.5 ML EACH EYE
[2018-09-22 20:41] VITALS: Ht 149.9 cm; Wt 45.5 kg
== END 2018-09-22 14:45 | disposition home or self-care (01) ==
LOC: D.OPS 13:30
DX: M81.0 Age-related osteoporosis without current pathological fracture (principal); Z01.812 Encounter for preprocedural laboratory examination

== ENCOUNTER 2018-12-25 12:32 | Emergency (ER) | payer MEDICARE ==
[~2018-12-25] VITALS: Ht 149.9 cm; Wt 49.9 kg
[2018-12-25 12:55] VITALS: Ht 149.9 cm; Wt 49.9 kg
[2018-12-25] MEDS ORDERED: HYDROCODON-ACE1 EA10 PO (15:40)
[2018-12-25 16:32] VITALS: BP 104/51
--- NOTE | 2018-12-25 16:35 | NUR ---
PT ARRIVED FROM RECOVERY. SITTING UP TALKING. DAUGHTER AT BS. NO S/S OF ACUTE DISTRESS. CL IN PLACE
[2018-12-25 16:53] LABS: BASOPHILS 0.7 % (0-2); HEMATOCRIT 26.8 % (36.0-48.0); HEMOGLOBIN 9.4 g/dL (12-16); IMMATURE GRANULOCYTES 0.7 % (0-5); LYMPHOCYTES 24.4 % (15-50); MCH 42.7 pg (26.0-34.0); MCHC 35.1 g/dL (31.0-37.0); MCV 121.8 fL (80.0-100.0); MEAN PLATELET VOLUME 9.8 fL (7.4-10.4); MONOCYTES 11.1 % (2-11); NEUTROPHILS 61.1 % (40-80); RDW 13.5 % (11.5-14.5); WBC 3.1 10x3/uL (4.8-10.8)
[2018-12-25 16:54] LABS: PLATELET COUNT 158 10x3/uL (130-400)
--- NOTE | 2018-12-28 12:10 | OP ---
PATIENT NAME: KUSH MARTINEZ MEDICAL RECORD: [id number] :52 LOCATION:. 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 PROCEDURE: Formalization of the amputation. SURGEON: Flavio Fontanez MD ANESTHESIA: General. INTRAOPERATIVE COMPLICATIONS: None. SUMMARY OF PATHOLOGIC FINDINGS: Consistent with the preoperative diagnosis of the patient's fingertip, had been taken completely off down to the germinal matrix. The tip was brought in; however, due to the comminution and the amount of compression. It was not salvageable. OPERATIVE SUMMARY IN DETAIL: After obtaining the appropriate preoperative orthopedic surgery consent as well as anesthetic consultation, evaluation and clearance, the patient was brought to the operating room and placed on the operating table in supine position. After general laryngeal mask airway was administered, the patient's left upper extremity was prepped and draped in routine sterile fashion. Elliptical incision was created for a closure about the DIP joint itself. The DIP joint was disarticulated. The wound was copiously irrigated and then closed with 4-0 Prolene in a routine interrupted fashion. Please note, the patient did have a digital block prior to proceeding with the above. Sterile dressings were applied. The patient was awakened, taken to the recovery room in stable condition. All final needle and sponge counts were correct. TRANSINT:[id number] Voice Confirmation ID: [id number] DOCUMENT ID: [id number] FLAVIO FONTANEZ MD at 1210 CC: [id number] DICTATION DATE: 12/25/18 1544 MOLD SWABBER: 12/26/18 0314 DEP ER 12/25/18 [facility] [address] [id number]
== END 2018-12-25 14:50 | disposition home or self-care (01) ==
LOC: D.ER 12:32 → D.MS 16:10
PROVIDERS: Family Medicine
DX: S68.625A Partial traumatic transphalangeal amputation of left ring finger, initial encounter (principal)